=== PATIENT | female | born 1985 | race Caucasian/White ===

== ENCOUNTER 2018-08-16 09:13 | Emergency (ER) | payer OTHER ==
[~2018-08-16] VITALS: Ht 157.5 cm; Wt 54.4 kg
--- OUTSIDE RECORDS SUMMARY | 2018-08-16 09:16 | XMS REPORT | Summary of Care ---
Author Author [facility] Address Unknown Phone Unavailable Encounter NIDHI Renteria(RY) [id number] Date(s): 09/21/17 - 09/21/17 [facility] [address] [place] [address]- [phone] Discharge Disposition: Home or Self Care Attending Physician: Jessy Lilly MD Referring Physician: Criss Rodriguez MD Vital Signs Most recent to 1 oldest [Reference Range]: Height 157.48 cm (09/21/17 9:13 AM) Temperature Oral 98.8 DegF [96.4-99.1 DegF] (09/21/17 9:13 AM) Blood Pressure 122/85 mmHg [90-140/60-90 mmHg] (09/21/17 9:13 AM) Peripheral Pulse 88 bpm Rate [60-100 bpm] (09/21/17 9:13 AM) Weight 60.455 kg (09/21/17 9:13 AM) Body Mass Index 24.38 m2 (09/21/17 9:13 AM) Problem List Condition Effective Dates Status Health Status Informant Acute serous otitis 03/12/14 Active media1 Migraine2 10/16/13 Active 1Data migrated from [employer] on 04/30/15. 2Data migrated from [employer] on 02/25/15. Allergies, Adverse Reactions, Alerts Substance Reaction Severity Status penicillins1 Active erythromycin2 Active 1Data migrated from [employer] on 04/24/15. Originally documented as PCN. rash, and itching 2Data migrated from [employer] on 01/23/15. Originally documented as ERYTHROMYCIN. rash, Medications No Known Medications Results No data available for this section Immunizations No data available for this section Procedures Procedure Date Related Diagnosis Body Site section Social History Social History Type Response Smoking Status Never smoker; Exposure to Tobacco Smoke None; Cigarette Smoking Last 365 Days No; Reg Smoking Cessation Counseling No Assessment and Plan No data available for this section
--- OUTSIDE RECORDS SUMMARY | 2018-08-16 09:16 | XMS REPORT | Summary of Care ---
Author Author [facility] Address Unknown Phone Unavailable Encounter NIDHI Renteria(FIN) [id number] Date(s): 08/22/17 - 08/22/17 [facility] [address] [place] [address]- [phone] Discharge Disposition: Home or Self Care Attending Physician: Criss Rodriguez MD Referring Physician: Criss Rodriguez MD Vital Signs Most recent to 1 oldest [Reference Range]: Height 157.48 cm (08/22/17 2:51 PM) Temperature Oral 99.0 DegF [96.4-99.1 DegF] (08/22/17 2:51 PM) Blood Pressure 122/87 mmHg [90-140/60-90 mmHg] (08/22/17 2:51 PM) Respiratory Rate 18 BRMIN [14-20 BRMIN] (08/22/17 2:51 PM) Peripheral Pulse 112 bpm Rate [60-100 bpm] *HI* (08/22/17 2:51 PM) Weight 58.636 kg (08/22/17 2:51 PM) Body Mass Index 23.64 m2 (08/22/17 2:51 PM) Problem List Condition Effective Dates Status Health [...] 01/23/15. Originally documented as ERYTHROMYCIN. rash, Medications TamiFLU 75 mg oral capsule 75 mg, PO, Q12H, X 5 day, # 10 cap, 0 Refill(s) Start Date: 08/22/17 Stop Date: 08/27/17 Status: Ordered Tylenol 325 mg oral tablet 325 mg=1 tab, PO, Q4H, PRN Fever, # 60 tab, 0 Refill(s) Start Date: 08/22/17 Stop Date: 09/01/17 Status: Ordered Results No data available for this section [...]
--- OUTSIDE RECORDS SUMMARY | 2018-08-16 09:16 | XMS REPORT | Summary of Care ---
Author Author [facility] Address Unknown Phone Unavailable Encounter HQ Ladyr_alyse(FIN) [id number] Date(s): 11/11/17 - 11/11/17 [facility] [address] [place] [address]- [phone] Discharge Disposition: Home or Self Care Attending Physician: Criss Rodriguez MD Referring Physician: Criss Rodriguez MD Vital Signs Most recent to 1 oldest [Reference Range]: Height 157.48 cm (11/11/17 11:44 AM) Temperature Oral 98.9 DegF [96.4-99.1 DegF] (11/11/17 11:44 AM) Blood Pressure 124/80 mmHg [90-140/60-90 mmHg] (11/11/17 11:44 AM) Respiratory Rate 18 BRMIN [14-20 BRMIN] (11/11/17 11:44 AM) Peripheral Pulse 82 bpm Rate [60-100 bpm] (11/11/17 11:44 AM) Weight 62.273 kg (11/11/17 11:44 AM) Body Mass Index 25.11 m2 (11/11/17 11:44 AM) Problem List Condition Effective Dates Status [...] 01/23/15. Originally documented as ERYTHROMYCIN. rash, Medications ergocalciferol 50,000 intl units oral capsule 50,000 IntlUnit=1 cap, PO, qWeek, # 12 cap, 0 Refill(s), Pharmacy: [facility] [place] [address] Start Date: 11/15/17 Stop Date: 02/07/18 Status: Ordered hydrochlorothiazide 12.5 mg oral tablet 12.5 mg=1 tab, PO, Daily, PRN ankle swelling, # 30 tab, 3 Refill(s), Pharmacy: [facility] [place] [address] Start Date: 11/11/17 Status: Ordered phentermine 37.5 mg oral capsule 37.5 mg=1 cap, PO, Daily, X 30 day, # 30 tab, 0 Refill(s) Start Date: 11/11/17 Stop Date: 12/11/17 Status: Completed topiramate 100 mg oral tablet 100 mg=1 tab, PO, BID, TAKE ONE (1) TABLET(S) BY MOUTH TWICE A DAY., # 180 tab, 1 Refill(s), Pharmacy: [facility] [place] [address] Start Date: 11/11/17 Status: Ordered topiramate 100 mg oral tablet TAKE ONE (1) TABLET(S) BY MOUTH TWICE A DAY. Start Date: 11/11/17 Stop Date: 11/11/17 Status: Discontinued Results No data available for this section Immunizations No data available for this section Procedures Procedure Date Related Diagnosis Body Site Status Collection of venous blood by venipuncture 11/11/17 Completed section Completed Social History Social History Type Response Smoking Status Never smoker; Exposure to Tobacco Smoke None; Cigarette Smoking Last 365 Days No; Reg Smoking Cessation Counseling No entered on: 11/11/17 Assessment and Plan No data available for this section
--- OUTSIDE RECORDS SUMMARY | 2018-08-16 09:16 | XMS REPORT | Summary of Care ---
Author Author [facility] Address Unknown Phone Unavailable Encounter HQ Encntr_alilindsay(FIN) [id number] Date(s): 12/07/17 - 12/07/17 [facility] [address] [place] [address]- [phone] Attending Physician: Criss Rodriguez MD Referring Physician: Criss Rodriguez MD Vital Signs No data available for this section Problem List Condition Effective Dates Status Health [...] Originally documented as ERYTHROMYCIN. rash, Medications No data available for this section Results No data available for this section Immunizations No data available for this section Procedures Procedure Date Related Diagnosis Body Site Status section Completed Social History Social History Type Response Smoking Status Never smoker; Exposure to Tobacco Smoke None; Cigarette Smoking Last 365 Days No; Reg Smoking Cessation Counseling No entered on: 02/22/18 Assessment and Plan No data available for this section
--- OUTSIDE RECORDS SUMMARY | 2018-08-16 09:16 | XMS REPORT | Summary of Care ---
Author Author [facility] Address Unknown Phone Unavailable Encounter HQ Ladyr_alyse(FIN) [id number] Date(s): 10/03/17 - 10/03/17 [facility] [address] [place], [place] [address]- [phone] Attending Physician: Criss Rodriguez MD Referring Physician: [...]
--- OUTSIDE RECORDS SUMMARY | 2018-08-16 09:16 | XMS REPORT | Summary of Care ---
Author Author [facility] Address Unknown Phone Unavailable Encounter HQ Encntr_alilindsay(FIN) [id number] Date(s): 10/03/17 - 10/03/17 [facility] [address] [place], [place] [address]- [phone] Attending Physician: Criss Rodriguez MD Referring Physician: [...]
--- OUTSIDE RECORDS SUMMARY | 2018-08-16 09:16 | XMS REPORT | Continuity of Care Document ---
Author Author [facility] Address Unknown Phone Unavailable Problems Problem Status Onset Date Classification Date Reported Comments Source Acute serous otitis media<sup>1</sup> Active 03/12/2014 Problem 03/15/2018 Data migrated from [employer] on 04/30/15. [facility] Migraine<sup>2</sup> Active 10/16/2013 Problem 03/15/2018 Data migrated from [employer] on 02/25/15. [facility] Medications Medication Details Route Status Patient Instructions Ordering Provider Order Date Source Ergocalciferol 60242 UNT Oral Capsule 50,000 IntlUnit=1 cap, PO, qWeek, # 12 cap, 0 Refill(s), Pharmacy: [facility] [place] [address] Active 02/22/2018 [facility] Phentermine Hydrochloride 37.5 MG Oral Tablet 37.5 mg=1 tab, PO, Daily, X 30 day, # 30 tab, 2 Refill(s) Active 02/22/2018 [facility] Ergocalciferol 18154 UNT Oral Capsule 50,000 IntlUnit=1 cap, PO, qWeek, # 12 cap, 0 Refill(s), Pharmacy: [facility] [place] [address] Active 11/15/2017 [facility] hydrochlorothiazide 12.5 mg oral tablet 12.5 mg=1 tab, PO, Daily, PRN ankle swelling, # 30 tab, 3 Refill(s), Pharmacy: [facility] [place] [address] Active 11/11/2017 [facility] topiramate 100 mg oral tablet 100 mg=1 tab, PO, BID, TAKE ONE (1) TABLET(S) BY MOUTH TWICE A DAY., # 180 tab, 1 Refill(s), Pharmacy: [facility] [place] [address] Active 11/11/2017 [facility] Phentermine Hydrochloride 37.5 MG Oral Capsule 37.5 mg=1 cap, PO, Daily, X 30 day, # 30 tab, 0 Refill(s) No Longer Active 11/11/2017 [facility] Oseltamivir 75 MG Oral Capsule [Tamiflu] 75 mg, PO, Q12H, X 5 day, # 10 cap, 0 Refill(s) Active 08/22/2017 [facility] Acetaminophen 325 MG Oral Tablet [Tylenol] 325 mg=1 tab, PO, Q4H, PRN Fever, # 60 tab, 0 Refill(s) Active 08/22/2017 [facility] Allergies, Adverse Reactions, Alerts Substance Category Reaction Severity Reaction type Status Date Reported Comments Source penicillins<sup>1</sup> Assertion Drug allergy Active 10/16/2013 Data migrated from [employer] on 04/24/15. Originally documented as PCN. rash, and itching [facility] erythromycin<sup>2</sup> Assertion Drug allergy Active 10/16/2013 Data migrated from [employer] on 01/23/15. Originally documented as ERYTHROMYCIN. rash, [facility] Immunizations Immunization Date Given Site Status Last Updated Comments Source Results Order Name Results Value Reference Range Date Interpretation Comments Source Vital Signs Vital Sign Value Date Comments Source Height 157.48 cm 02/22/2018 [facility] Weight 56.42 02/22/2018 [facility] BMI Calculated 22.75 02/22/2018 [facility] Systolic (mm Hg) 142 02/22/2018 [facility] Diastolic (mm Hg) 94 02/22/2018 [facility] Heart Rate 79 02/22/2018 [facility] Temperature Oral (F) 98.3 F 02/22/2018 [facility] Systolic (mm Hg) 124 11/11/2017 [facility] Diastolic (mm Hg) 80 11/11/2017 [facility] Weight 62.273 11/11/2017 [facility] BMI Calculated 25.11 11/11/2017 [facility] Respitory Rate 18 11/11/2017 [facility] Heart Rate 82 11/11/2017 [facility] Temperature Oral (F) 98.9 F 11/11/2017 [facility] Group Height 157.48 cm 11/11/2017 [facility] Weight 60.455 09/21/2017 [facility] BMI Calculated 24.38 09/21/2017 [facility] Systolic (mm Hg) 122 09/21/2017 [facility] Diastolic (mm Hg) 85 09/21/2017 [facility] Temperature Oral (F) 98.8 F 09/21/2017 [facility] Heart Rate 88 09/21/2017 [facility] Height 157.48 cm 09/21/2017 [facility] BMI Calculated 23.64 08/22/2017 [facility] Weight 58.636 08/22/2017 [facility] Height 157.48 cm 08/22/2017 [facility] Temperature Oral (F) 99.0 F 08/22/2017 [facility] Heart Rate 112 08/22/2017 [facility] Respitory Rate 18 08/22/2017 [facility] Systolic (mm Hg) 122 08/22/2017 [facility] Diastolic (mm Hg) 87 08/22/2017 [facility] Encounters Location Location Details Encounter Type Encounter Number Reason For Visit Attending Provider ADM Date DC Date Status Source Outpatient [id number] CRISS RODRIGUEZ 04/16/2015 Active [facility] Outpatient [id number] CRISS RODRIGUEZ 09/03/2015 Active [facility] Outpatient [id number] CRISS RODRIGUEZ 09/22/2016 Active [facility] Outpatient [id number] CRISS RODRIGUEZ 05/05/2017 Active [facility] Outpatient [id number] CRISS RODRIGUEZ 06/06/2017 Active [facility] Outpatient [id number] CRISS RODRIGUEZ 07/04/2017 Active [facility] Outpatient [id number] CRISS RODRIGUEZ 08/22/2017 Active [facility] Outpatient [id number] Criss Rodriguez 08/22/2017 08/23/2017 [facility] Outpatient [id number] ROSLYN ANDERS 09/21/2017 Active [facility] Outpatient [id number] Criss Rodriguez 09/21/2017 09/22/2017 [facility] Outpatient [id number] CRISS RODRIGUEZ 10/03/2017 Active [facility] Pre-Reg [id number] Criss Rodriguez 10/03/2017 10/03/2017 [facility] Outpatient [id number] CRISS RODRIGUEZ 11/11/2017 Active [facility] Outpatient [id number] Criss Rodriguez 11/11/2017 11/12/2017 [facility] Outpatient [id number] CRISS RODRIGUEZ 12/07/2017 Active [facility] Pre-Reg [id number] Criss Rodriguez 12/07/2017 12/07/2017 [facility] Outpatient [id number] CRISS RODRIGUEZ 02/22/2018 Active [facility] Outpatient [id number] Criss Rodriguez 02/22/2018 02/23/2018 [facility] Outpatient [id number] CRISS RODRIGUEZ 05/25/2018 Active [facility] Procedures Procedure Code Date Perfomer Comments Source Collection of venous blood by venipuncture 76822 11/11/2017 Medical [facility] section [id number] Medical Group
--- OUTSIDE RECORDS SUMMARY | 2018-08-16 09:16 | XMS REPORT | Summary of Care ---
Author Author [facility] Address Unknown Phone Unavailable Encounter HQ Dexter(FIN) [id number] Date(s): 02/22/18 - 02/22/[address] [facility] [address] [place] [address]- [phone] Discharge Disposition: Home or Self Care Attending Physician: Criss Rodriguez MD Referring Physician: Criss Rodriguez MD Vital Signs Most recent to 1 oldest [Reference Range]: Height 157.48 cm (02/22/18 11:14 AM) Temperature Oral 98.3 DegF [96.4-99.1 DegF] (02/22/18 11:14 AM) Blood Pressure 142/94 mmHg [90-140/60-90 mmHg] *HI* (02/22/18 11:14 AM) Peripheral Pulse 79 bpm Rate [60-100 bpm] (02/22/18 11:14 AM) Weight 56.42 kg (02/22/18 11:14 AM) Body Mass Index 22.75 m2 (02/22/18 11:14 AM) Problem List Condition Effective Dates Status [...] qWeek, # 12 cap, 0 Refill(s), Pharmacy: [facility] [place] [address] Start Date: 02/22/18 Stop Date: 05/17/18 Status: Ordered phentermine 37.5 mg oral tablet 37.5 mg=1 tab, PO, Daily, X 30 day, # 30 tab, 2 Refill(s) Start Date: 02/22/18 Stop Date: 05/23/18 Status: Ordered Results No data available for [...]
[2018-08-16] MEDS ORDERED: SODIUM CHLORIDE 0.9% 1000ML 1,000 ML IV STA (09:38)
[2018-08-16] MEDS ORDERED: MORPHINE SULFATE INJ 4 MG/ML INJ IV ONE (10:15)
[2018-08-16] MEDS ORDERED: ONDANSETRON HCL INJ 2 MG/ML VIAL IV ONE (10:15)
[2018-08-16 10:17] LABS: BASOPHILS # (AUTO) 0.1 (0.0-0.1); BASOPHILS % 0.5 % (0.0-1.0); EOSINOPHILS % 0.1 % (0.0-6.0); HEMATOCRIT 37.2 % (34.2-44.1); HEMOGLOBIN 12.8 g/dL (12.0-16.0); LYMPHOCYTES # (AUTO) 1.6 (1.0-3.2); LYMPHOCYTES % 13.4 % (18.0-39.1); MEAN CORPUSCULAR HEMOGLOBIN 30.7 pg (28-32); MEAN CORPUSCULAR HGB CONC 34.4 g/dL (31-35); MEAN CORPUSCULAR VOLUME 89.2 fL (81-99); MONOCYTES # (AUTO) 0.5 (0.2-0.8); MONOCYTES % 3.9 % (4.4-11.3); NEUTROPHILS # (AUTO) 9.7 (2.1-6.9); NEUTROPHILS % 81.7 % (38.7-80.0); PLATELET COUNT 250 x10e3/uL (140-360); RED BLOOD COUNT 4.17 x10e6/uL (3.6-5.1); RED CELL DISTRIBUTION WIDTH 12.6 % (11.7-14.4)
[2018-08-16] MEDS ORDERED: FAMOTIDINE 20 MG/2 ML VIAL IV ONE (10:20)
[2018-08-16 10:38] LABS: BILIRUBIN,URINE NEGATIVE (NEGATIVE); CLARITY,URINE CLOUDY (CLEAR); COLOR,URINE YELLOW (YELLOW); KETONES,URINE TRACE (NEGATIVE); LEUKOCYTE ESTERASE ,URINE NEGATIVE (NEGATIVE); NITRITE,URINE NEGATIVE (NEGATIVE); PROTEIN,URINE DIPSTICK NEGATIVE (NEGATIVE); URINE UROBILINOGEN 0.2 mg/dL (0.2 - 1)
[2018-08-16 10:48] LABS: ALANINE AMINOTRANSFERASE 13 IU/L (0-55); ALBUMIN 4.1 g/dL (3.5-5.0); ALBUMIN/GLOBULIN RATIO 1.2 (0.8-2.0); ALKALINE PHOSPHATASE 44 IU/L (40-150); AMYLASE 26 U/L (25-125); ANION GAP 12.6 mmol/L (8-16); BLOOD UREA NITROGEN 10 mg/dL (7-26); BUN/CREATININE RATIO 12 (6-25); CALCIUM 9.3 mg/dL (8.4-10.2); CARBON DIOXIDE 25 mmol/L (22-29); CHLORIDE 98 mmol/L (98-107); CREATININE, SERUM 0.84 mg/dL (0.57-1.11); EST GLOMERULAR FILTRATION RATE > 60 ML/MIN (60-); GLUCOSE 117 mg/dL (74-118); LIPASE 9 U/L (8-78); POTASSIUM 3.6 mmol/L (3.5-5.1); SODIUM 132 mmol/L (136-145)
--- NOTE | 2018-08-16 10:52 | Diagnostic Imaging Report ---
PROCEDURE:US GALLBLADDER COMPARISON:None. INDICATIONS:ABD PAIN TECHNIQUE: Hebert-scale and color doppler transverse and longitudinal images of the right upper quadrant of the abdomen were obtained. FINDINGS: Liver: 15.2 cm in length and the right midclavicular line. Normal parenchymal echogenicity. No focal mass. Main portal vein: 1.2 cm in caliber. Hepatopedal flow. Gallbladder: Multiple shadowing calculi are identified. Gallbladder wall is of normal thickness and there is no pericholecystic fluid. Common Bile Duct: 0.3 cm in caliber. Sonographic Akins's sign: Reported as negative. Right kidney: 9.3 cm in length. Normal echogenicity. No solid masses or hydronephrosis. Pancreas: The visualized portions are unremarkable. Inferior vena cava: Patent Aorta: Non-aneurysmal Ascites: None in the right upper quadrant of the abdomen. CONCLUSION: Cholelithiasis without sonographic evidence of acute cholecystitis. Dictated by: Buck Caceres M.D. on 08/16/2018 at 11:02 Electronically approved by: Buck Caceres M.D. on 08/16/2018 at 11:02
[2018-08-16 10:54] LABS: AMORPHOUS SEDIMENT,URINE MODERATE (FEW)
[2018-08-16] MEDS ORDERED: ONDANSETRON HCL INJ 2 MG/ML VIAL IV STA (12:11)
[2018-08-16] MEDS ORDERED: HYDROCODONE/APAP 5MG-325MG TAB PO ONE (12:15)
--- NOTE | 2018-08-16 13:04 | Diagnostic Imaging Report ---
EXAMINATION: CT of the abdomen and pelvis with contrast. TECHNIQUE: Spiral CT images of the abdomen and pelvis were performed from the lung bases to the lesser trochanters after the intravenous administration of 100 cc of Isovue-370 and the oral administration of water. Coronal and sagittal reformatted images were obtained. COMPARISON: Gallbladder ultrasound same day CLINICAL HISTORY:Abdominal pain DISCUSSION: ABDOMEN/PELVIS: LOWER THORAX:Unremarkable. HEPATOBILIARY: No focal hepatic lesions. No intra-or extrahepatic biliary ductal dilation. Multiple gas containing calculi within the gallbladder, without evidence of wall thickening, enhancement, or pericholecystic inflammation. SPLEEN: No splenomegaly. PANCREAS: No focal masses or ductal dilatation. ADRENALS: No adrenal nodules. KIDNEYS/URETERS: No hydronephrosis, stones, or solid mass lesions. PELVIC ORGANS/BLADDER: Urinary bladder is unremarkable. Uterus is anteflexed and appears normal. Right ovarian corpus luteum. No adnexal mass. PERITONEUM/RETROPERITONEUM: Trace free pelvic fluid average attenuation less than 20 Hounsfield units. No pneumoperitoneum. LYMPH NODES: No intra-abdominal, retroperitoneal, pelvic or inguinal lymphadenopathy. VESSELS: The abdominal aorta, major branch vessels, and iliac arterial systems are patent without aneurysmal dilatation. Portal vein, splenic vein, and central superior mesenteric vein are patent. Retroaortic left renal vein. GI TRACT: The large bowel is collapsed and poorly evaluated from the level of the proximal transverse colon through the rectum. Radiopaque material in the terminal ileum and cecum may reflect antacid or other metallic salt containing medication ingestion. The appendix is not definitively identified. No right lower quadrant inflammatory change. No small bowel dilatation to suggest obstruction. BONES AND SOFT TISSUE: No bony destructive lesions. No focal soft tissue abnormalities. IMPRESSION: Cholelithiasis without CT findings of acute cholecystitis. Otherwise no acute intra-abdominal or pelvic CT abnormalities. Trace free pelvic fluid is likely physiologic in a female patient of this age. Signed by: Dr. Buck Caceres M.D. on 08/16/2018 1:01 PM
[2018-08-16 14:50] VITALS: BP 119/73
[2018-08-16] MEDS ORDERED: SODIUM CHLORIDE 0.9% 50ML 50 ML ONE (18:20)
[2018-08-16] MEDS ORDERED: IOPAMIDOL 370 MG/ML 200 ML INFUS..BTL INJ ONE (18:20)
== END 2018-08-16 15:15 | disposition home or self-care (01) ==
LOC: ER 09:13
DX: R10.11 Right upper quadrant pain (principal); R10.31 Right lower quadrant pain; R11.2 Nausea with vomiting, unspecified; K80.20 Calculus of gallbladder without cholecystitis without obstruction
CPT/HCPCS: 36415; 74177; 76705; 80053; 81001; 82150; 83690; 84702; 85025; 99284; J2270; J2405; J7030; Q9967